=== PATIENT | male | born 1960 | race Two or more races ===

== ENCOUNTER 2018-04-07 10:23 | Outpatient (CLI) | payer OTHER | END 2018-04-07 10:28 | disposition home or self-care (01) | LOC: RAD 10:23 | DX: N20.0 Calculus of kidney (principal) ==

== ENCOUNTER 2018-04-24 09:57 | Outpatient (CLI) | payer OTHER | END 2018-04-24 10:08 | disposition home or self-care (01) | LOC: LAB 09:57 | DX: N20.0 Calculus of kidney (principal) ==

== ENCOUNTER 2018-04-29 09:48 | Outpatient (CLI) | payer OTHER | END 2018-04-29 09:51 | disposition home or self-care (01) | LOC: LAB 09:48 | DX: N20.0 Calculus of kidney (principal) ==

== ENCOUNTER 2019-09-10 12:14 | Outpatient (CLI) | payer OTHER | END 2019-09-10 12:20 | disposition home or self-care (01) | LOC: RAD 12:14 | PROVIDERS: ATTEND Urology | DX: N20.1 Calculus of ureter (principal); I10 Essential (primary) hypertension ==

== ENCOUNTER 2019-09-14 10:28 | Outpatient (CLI) | payer OTHER ==
[2019-09-14] MEDS ORDERED: LIPITOR20 MG PO (11:05)
[2019-09-14] MEDS ORDERED: TAMS0.4C PO (11:06)
== END 2019-09-14 15:00 | disposition home or self-care (01) ==
LOC: EKG 10:28
PROVIDERS: ATTEND Internal Medicine
DX: I10 Essential (primary) hypertension (principal)

== ENCOUNTER 2019-09-21 09:33 | Outpatient (CLI) | payer OTHER ==
[~2019-09-21 09:33] MED LIST: LIPITOR20 MG PO; TAMS0.4C PO
[2019-09-21] MEDS ORDERED: ADULT LOW DOSE81 M1 PO (13:38)
== END 2019-09-21 09:38 | disposition home or self-care (01) ==
LOC: RAD 09:33
PROVIDERS: ATTEND Urology
DX: N20.1 Calculus of ureter (principal)

== ENCOUNTER → 2019-09-23 | Day surgery (SDC) | payer OTHER ==
[~2019-09-23] MED LIST changes: +ADULT LOW DOSE81 M1 PO
== END | disposition home or self-care (01) ==
LOC: CIR.AMB 10:08
PROVIDERS: ATTEND Urology
DX: N20.0 Calculus of kidney (principal); N20.1 Calculus of ureter

== ENCOUNTER 2019-09-28 13:08 | Outpatient (CLI) | payer OTHER | END 2019-09-28 13:11 | disposition home or self-care (01) | LOC: RAD 13:08 | PROVIDERS: ATTEND Urology | DX: N20.1 Calculus of ureter (principal) ==

== ENCOUNTER 2019-10-26 10:00 | Outpatient (CLI) | payer OTHER | END 2019-10-26 10:05 | disposition home or self-care (01) | LOC: RAD 10:00 | PROVIDERS: ATTEND Urology | DX: N20.0 Calculus of kidney (principal) ==

== ENCOUNTER 2020-03-15 10:31 | Outpatient (CLI) | payer OTHER | END 2020-03-15 10:39 | disposition home or self-care (01) | LOC: RAD 10:31 | PROVIDERS: ATTEND Urology | DX: N20.0 Calculus of kidney (principal) ==